=== PATIENT | male | born 1940 | race Caucasian/White ===

== ENCOUNTER 2020-09-25 08:01 | Observation (INO) | payer MEDICARE ==
[~2020-09-25] VITALS: Ht 180.3 cm; Wt 94.5 kg
[2020-09-25 09:39] VITALS: BP 154/80
[2020-09-25] MEDS ORDERED: TAMS-11 PO (10:04)
[2020-09-25] MEDS ORDERED: MAGN400T36 PO (10:04)
[2020-09-25] MEDS ORDERED: OMEP-110 PO (10:04)
[2020-09-25] MEDS ORDERED: LEVO100T PO (10:04)
[2020-09-25] MEDS ORDERED: FISH1CAP PO (10:04)
[2020-09-25] MEDS ORDERED: ATOR40TA PO (10:04)
[2020-09-25] MEDS ORDERED: HYDROCHLOROTH12.5 MG PO (10:04)
[2020-09-25] MEDS ORDERED: AMLO-150 PO (10:04)
[2020-09-25] MEDS ORDERED: ASPI81TA45 PO (10:04)
[2020-09-25 10:15] LABS: INTERNATIONAL NORMALIZED RATIO 0.99 (0.93-1.1); PROTHROMBIN TIME 10.6 Seconds (9.6-11.5)
[2020-09-25 10:16] LABS: ANION GAP 6 mmol/L (5-15); CHLORIDE 110 mmol/L (98-107); CREATININE 1.11 mg/dL (0.7-1.3)
[2020-09-25 10:17] LABS: BASOPHILS % (AUTO) 1 % (0-1); EOSINOPHILS % (AUTO) 3 % (1-7); LYMPHOCYTES % (AUTO) 29 % (22-44); MEAN CORPUSCULAR HEMOGLOBIN 30.6 pg (27.5-34.5); MEAN PLATELET VOLUME 7.2 fL (7.4-10.4); MONOCYTES % (AUTO) 6 % (2-9); NEUTROPHILS % (AUTO) 62 % (42-75); PLATELET COUNT 216 x10^3/uL (130-400); RED CELL DISTRIBUTION WIDTH 13.5 % (9.4-14.8)
[2020-09-25 10:37] LABS: MD NO
[2020-09-25] MEDS ORDERED: MIDAZOLAM 1 MG/ML, 5ML ONE (11:39)
[2020-09-25] MEDS ORDERED: FENTANYL PF 100 MCG/2ML ONE (11:39)
[2020-09-25] MEDS ORDERED: LIDOCAINE 2%, 20ML ONE (11:40)
[2020-09-25] MEDS ORDERED: BIVALIRUDIN 250 MG ONE (11:40)
[2020-09-25] MEDS ORDERED: LIDOCAINE-MPF 1%, 5ML ONE (11:40)
[2020-09-25] MEDS ORDERED: HEPARIN 1,000 UNITS/ML, 10ML ONE (11:40)
[2020-09-25] MEDS ORDERED: VERAPAMIL 2.5 MG/ML, 2ML ONE (11:40)
[2020-09-25] MEDS ORDERED: DIPHENHYDRAMINE 50 MG/ML, 1ML ONE (11:54)
[2020-09-25] MEDS ORDERED: CLOPIDOGREL 300 MG TABLET ONE (12:35)
[2020-09-25] MEDS ORDERED: BIVALIRUDIN 250 MG in SODIUM CHLORIDE 0.9% 50 ML IV SCH (13:00)
[2020-09-25] MEDS: SODIUM CHLORIDE 0.9% 1,000 ML IV SCH ×2 (13:00→21:00)
[2020-09-25] MEDS ORDERED: ACETAMINOPHEN 325 MG TABLET PO PRN (13:00)
[2020-09-25 14:18] VITALS: BP 131/80
[2020-09-25 20:18] VITALS: BP 144/80
[2020-09-25] MEDS ORDERED: ATORVASTATIN 40 MG TABLET PO SCH (21:00)
[2020-09-25] MEDS ORDERED: DIPHENHYDRAMINE 25 MG CAPSULE PO PRN (22:00)
[2020-09-26 01:45] VITALS: BP 137/76
[2020-09-26 04:58] LABS: ANION GAP 7 mmol/L (5-15); CALCIUM 8.9 mg/dL (8.5-10.1); CHLORIDE 109 mmol/L (98-107)
[2020-09-26 04:59] LABS: CREATININE 1.06 mg/dL (0.7-1.3)
[2020-09-26] MEDS: SODIUM CHLORIDE 0.9% 1,000 ML IV SCH (05:00)
[2020-09-26] MEDS ORDERED: LEVOTHYROXINE 100 MCG TABLET PO SCH (06:00)
[2020-09-26 07:05] VITALS: BP 144/83
[2020-09-26] MEDS ORDERED: HYDROCHLOROTHIAZIDE 12.5 MG CAPSULE PO SCH (09:00)
[2020-09-26] MEDS ORDERED: AMLODIPINE 5 MG TABLET PO SCH (09:00)
[2020-09-26] MEDS ORDERED: [UNRECOGNIZED DRUG - REMARK] HOMEMEDPO SCH (09:00)
[2020-09-26] MEDS ORDERED: CLOPIDOGREL 75 MG TABLET PO SCH (09:00)
[2020-09-26] MEDS ORDERED: ASPIRIN 81 MG TABLET EC PO SCH (09:00)
[2020-09-26] MEDS ORDERED: [UNRECOGNIZED DRUG - REMARK] HOMEMEDPO SCH (09:00)
[2020-09-26] MEDS ORDERED: TAMSULOSIN 0.4 MG CAP.ER.24H PO SCH (09:00)
[2020-09-26] MEDS ORDERED: OMEPRAZOLE 20 MG CAPSULE.DR PO SCH (09:00)
[2020-09-26] MEDS ORDERED: CLOP75TA PO (09:25)
== END 2020-09-26 10:24 | disposition home or self-care (01) ==
LOC: CACL 08:01 → 5SO 13:05 → INTOOBSV 13:05 → 5SO 13:17 → DCLOUNGE 09-26 10:07
PROVIDERS: ADMIT Internal Medicine Cardiovascular Disease; ATTEND Internal Medicine Cardiovascular Disease
DX: I25.110 Atherosclerotic heart disease of native coronary artery with unstable angina pectoris (principal); T82.855A Stenosis of coronary artery stent, initial encounter; I10 Essential (primary) hypertension; E78.2 Mixed hyperlipidemia; G47.30 Sleep apnea, unspecified; Y83.1 Surgical operation with implant of artificial internal device as the cause of abnormal reaction of the patient, or of later complication, without mention of misadventure at the time of the procedure; Z01.810 Encounter for preprocedural cardiovascular examination; Z79.82 Long term (current) use of aspirin; Z79.899 Other long term (current) drug therapy
CPT/HCPCS: 36415; 80048; 85025; 85610; 93005; 93458; 96360; 96361; 99156; 99157; C1725; C1753; C1769; C1874; C1887; C1894; C9600; G0378; J0583; J1200; J1644; J2250; J3010; J3490; J7030; Q9967